=== PATIENT | male | born 1970 | race African-American/Black ===

== ENCOUNTER 2018-07-21 13:45 | Inpatient (IN) | payer MEDICAID ==
[~2018-07-21] VITALS: Ht 165.1 cm; Wt 79.4 kg
[~2018-07-21 13:45] MED LIST: ALD50 PO; AMLO5TAB88 PO; ATOR10TA PO; FOLI-43 PO; HYDR100T26 PO; KEPP500 PO; LABE100T5 PO; MINO2.5T19 PO; SEVE800T8 PO; THIA100T72 PO
[2018-07-21 15:39] LABS: INR 1.1; PROTHROMBIN TIME 11.1 sec (9.1-11.1)
[2018-07-21 15:40] LABS: CHLORIDE 104 mEq/L (98-107)
[2018-07-21 15:41] LABS: BASOPHILS % 0.7 % (0.0-2.0); EOSINOPHILS % 1.7 % (0.0-5.0); HEMATOCRIT. 29.2 % (42.0-52.0); HEMOGLOBIN. 9.6 g/dL (14.0-18.0); LYMPHOCYTES % 8.7 % (20.0-50.0); MEAN CORPUSCULAR HEMOGLOBIN 28.3 pg (28.0-32.0); MEAN CORPUSCULAR VOLUME 86.3 fL (80.0-94.0); MEAN PLATELET VOLUME 7.7 fl (7.4-10.4); MONOCYTES % 13.2 % (2.0-8.0); NEUTROPHILS % 75.7 % (40.0-76.0); PLATELET 231 x1000/uL (130-400); RED BLOOD CELL COUNT 3.38 mill/uL (4.7-6.1); RED CELL DISTRIBUTION WIDTH 18.9 % (11.6-14.6)
[2018-07-21] MEDS ORDERED: DEXTROSE 50% WATER 50ML SYRINGE IV ONE (16:15)
[2018-07-21] MEDS ORDERED: INSULIN REGULAR (HUMULIN R) 300UNITS/3ML IV ONE (16:15)
[2018-07-21] MEDS ORDERED: FUROSEMIDE 100MG/10ML VIAL IV ONE (16:15)
[2018-07-21] MEDS: ALBUTEROL (0.083%) 2.5MG/3ML NEB HHN SCH ×3 (16:30→17:20)
[2018-07-21] MEDS ORDERED: SODIUM POLYSTYRENE SULFONATE 15 G/60 ML BOT PO NR (16:45)
[2018-07-21] MEDS ORDERED: ONDANSETRON HCL 4MG/2ML INJ IV PRN (17:30)
[2018-07-21] MEDS ORDERED: ACETAMINOPHEN 325MG TABLET PO PRN (17:30)
[2018-07-21] MEDS ORDERED: NIFEDIPINE XL 60MG TAB PO SCH (17:30)
[2018-07-21] MEDS ORDERED: METOPROLOL TARTRATE 50MG TABLET PO NR (20:45)
[2018-07-21] MEDS ORDERED: ATORVASTATIN CALCIUM 10MG TABLET PO NR (20:45)
[2018-07-21] MEDS ORDERED: CLON0.3T MT (23:07)
[2018-07-21] MEDS ORDERED: FURO80TA87 MT (23:09)
[2018-07-21 23:12] VITALS: BP 158/95
[2018-07-21] MEDS: MORPHINE SULFATE 10MG/5ML ORAL SOLN UDC PO PRN (23:29)
[2018-07-21] MEDS: DIPHENHYDRAMINE 50MG/ML VIAL IV PRN (23:58)
[2018-07-22 04:00] VITALS: BP 165/110
[2018-07-22] MEDS: MORPHINE SULFATE 10MG/5ML ORAL SOLN UDC PO PRN ×2 (05:44→21:21)
[2018-07-22] MEDS: DIPHENHYDRAMINE 50MG/ML VIAL IV PRN ×3 (06:36→18:57)
[2018-07-22] MEDS: METOPROLOL TARTRATE 50MG TABLET PO SCH ×2 (07:56→21:15)
[2018-07-22 08:00] VITALS: BP 165/109
[2018-07-22] MEDS ORDERED: LORAZEPAM 2MG/ML CPJ IV PRN (08:30)
[2018-07-22] MEDS: LEVETIRACETAM 500MG TABLET PO SCH ×2 (08:44→21:14)
[2018-07-22 09:59] LABS: HEMATOCRIT. 26.7 % (42.0-52.0); HEMOGLOBIN. 8.7 g/dL (14.0-18.0); MEAN CORPUSCULAR HEMOGLOBIN 27.5 pg (28.0-32.0); MEAN CORPUSCULAR VOLUME 84.4 fL (80.0-94.0); MEAN PLATELET VOLUME 7.8 fl (7.4-10.4); PLATELET 211 x1000/uL (130-400); RED BLOOD CELL COUNT 3.16 mill/uL (4.7-6.1); RED CELL DISTRIBUTION WIDTH 18.8 % (11.6-14.6)
[2018-07-22] MEDS: AMLODIPINE 5MG TABLET PO SCH ×2 (10:01→21:14)
[2018-07-22] MEDS: LOSARTAN POTASSIUM 100 MG TABLET PO SCH (10:02)
[2018-07-22 12:00] VITALS: BP 189/124
[2018-07-22] MEDS: IPRATROPIUM/ALBUTEROL 0.5-3(2.5)MG/3ML NEB HHN SCH ×3 (12:01→20:49)
[2018-07-22] MEDS ORDERED: HEPARIN SODIUM 1,000 UNIT/1ML VIAL IV SCH (13:30)
[2018-07-22 16:00] VITALS: BP 171/113
[2018-07-22] MEDS: HYDRALAZINE HCL 100MG TABLET PO SCH ×2 (16:08→21:14)
[2018-07-22 16:25] LABS: PLATELET ESTIMATE NORMAL
[2018-07-22 20:00] VITALS: BP_SYST 151; BP_SYST 152; BP_DIAS 94; BP_DIAS 95
[2018-07-22] MEDS ORDERED: EPOETIN ALFA 4000UNITS/ML VIAL SUBCUT SCH (21:00)
[2018-07-22] MEDS ORDERED: ZOLPIDEM TARTRATE 5MG TABLET PO PRN (21:00)
[2018-07-22] MEDS: CLONIDINE 0.2MG TABLET PO SCH (21:15)
[2018-07-22] MEDS: ATORVASTATIN CALCIUM 10MG TABLET PO SCH (21:15)
[2018-07-23] VITALS (8 sets, daily range): BP systolic 114–177; BP diastolic 67–94
[2018-07-23] MEDS: IPRATROPIUM/ALBUTEROL 0.5-3(2.5)MG/3ML NEB HHN SCH ×6 (00:58→20:25)
[2018-07-23] MEDS: CLONIDINE 0.2MG TABLET PO SCH ×3 (05:21→21:07)
[2018-07-23] MEDS: HYDRALAZINE HCL 100MG TABLET PO SCH ×3 (05:21→21:07)
[2018-07-23] MEDS: DIPHENHYDRAMINE 50MG/ML VIAL IV PRN ×3 (06:26→16:53)
[2018-07-23 07:39] LABS: HEMATOCRIT. 25.5 % (42.0-52.0); HEMOGLOBIN. 8.4 g/dL (14.0-18.0); MEAN CORPUSCULAR VOLUME 85.5 fL (80.0-94.0); MEAN PLATELET VOLUME 7.5 fl (7.4-10.4); PLATELET 193 x1000/uL (130-400); RED BLOOD CELL COUNT 2.99 mill/uL (4.7-6.1); RED CELL DISTRIBUTION WIDTH 19.1 % (11.6-14.6)
[2018-07-23] MEDS: METOPROLOL TARTRATE 50MG TABLET PO SCH ×2 (09:00→21:08)
[2018-07-23] MEDS: AMLODIPINE 5MG TABLET PO SCH ×2 (09:00→21:07)
[2018-07-23] MEDS: LOSARTAN POTASSIUM 100 MG TABLET PO SCH (09:00)
[2018-07-23] MEDS: LEVETIRACETAM 500MG TABLET PO SCH ×2 (09:13→21:07)
[2018-07-23] MEDS: MORPHINE SULFATE 10MG/5ML ORAL SOLN UDC PO PRN (10:18)
[2018-07-23 13:57] LABS: PLATELET ESTIMATE NORMAL
[2018-07-23] MEDS ORDERED: HEPARIN SODIUM 1,000 UNIT/1ML VIAL IV NR (19:45)
[2018-07-23] MEDS: ATORVASTATIN CALCIUM 10MG TABLET PO SCH (21:07)
== END 2018-07-23 21:15 | disposition home or self-care (01) | DRG 133 ==
LOC: ER 13:49 → 8WST 16:28 → EDBEDREQ 16:33 → ENRESERV 21:59
PROVIDERS: ADMIT Internal Medicine; ATTEND Internal Medicine
PROC: 5A1D70Z Performance of Urinary Filtration, Intermittent, Less than 6 Hours Per Day (ICD-10-PCS; principal; 2018-07-22)
PROC: 5A09357 Assistance with Respiratory Ventilation, Less than 24 Consecutive Hours, Continuous Positive Airway Pressure (ICD-10-PCS; 2018-07-22)
PROC: 5A1D70Z Performance of Urinary Filtration, Intermittent, Less than 6 Hours Per Day (ICD-10-PCS; 2018-07-23)
PROC: 5A09357 Assistance with Respiratory Ventilation, Less than 24 Consecutive Hours, Continuous Positive Airway Pressure (ICD-10-PCS; 2018-07-23)
DX: J96.00 Acute respiratory failure, unspecified whether with hypoxia or hypercapnia (principal); I13.2 Hypertensive heart and chronic kidney disease with heart failure and with stage 5 chronic kidney disease, or end stage renal disease; N18.6 End stage renal disease; E87.5 Hyperkalemia; E78.5 Hyperlipidemia, unspecified; E78.00 Pure hypercholesterolemia, unspecified; G40.909 Epilepsy, unspecified, not intractable, without status epilepticus; I50.33 Acute on chronic diastolic (congestive) heart failure; D63.8 Anemia in other chronic diseases classified elsewhere; F17.200 Nicotine dependence, unspecified, uncomplicated; Z99.2 Dependence on renal dialysis; Z87.820 Personal history of traumatic brain injury; Z88.8 Allergy status to other drugs, medicaments and biological substances; Z71.6 Tobacco abuse counseling
CPT/HCPCS: 36415; 71045; 80048; 82962; 83880; 84484; 93005; 94640; 96374; 96375; 99291; C1893; J0885; J1200; J1644; J1815; J1940; J2060; J7611; J7620